=== PATIENT | male | born 1985 | race Caucasian/White ===

== ENCOUNTER 2018-10-18 14:25 | Emergency (ER) | payer SELFPAY ==
[~2018-10-18] VITALS: Ht 170.2 cm; Wt 70.0 kg
[2018-10-18 14:27] VITALS: BP 144/96
== END 2018-10-18 17:10 | disposition left against medical advice (07) ==
LOC: ER 14:25
DX: R10.9 Unspecified abdominal pain (principal); Z53.21 Procedure and treatment not carried out due to patient leaving prior to being seen by health care provider